=== PATIENT | female | born 1995 | race Hispanic/Latino ===

== ENCOUNTER 2018-12-16 07:58 | Emergency (ER) | payer MEDICAID, OTHER ==
[2018-12-16] MEDS ORDERED: ACETAMINOPHEN 325 MG TAB ONE (08:29)
[2018-12-16] MEDS ORDERED: LACTATED RINGERS 1000ML 1,000 ML IV ONE (08:29)
[2018-12-16] MEDS ORDERED: ONDANSETRON HCL 4 MG/2 ML VIAL ONE (08:29)
[2018-12-16] MEDS ORDERED: MORPHINE SULFATE 2 MG/ML 1ML SYG ONE (08:29)
[2018-12-16] MEDS ORDERED: FAMOTIDINE/PF 20 MG/2 ML VIAL IV ONE (08:30)
[2018-12-16 08:32] LABS: BASOPHILS % (AUTO) 0.2 % (0.0-5.0); EOSINOPHILS % (AUTO) 0.1 % (0.0-8.0); HEMATOCRIT 44.8 % (36-48); MEAN CORPUSCULAR HEMOGLOBIN 30.3 pg (27.0-33.0); MEAN CORPUSCULAR HGB CONC 33.9 g/dL (32.0-36.0); MEAN CORPUSCULAR VOLUME 89.4 fL (79-99); MONOCYTES % (AUTO) 5.2 % (3.0-13.0); NEUTROPHILS % (AUTO) 85.5 % (40.0-77.0); PLATELET COUNT (AUTO) 277 K/uL (130-400); RED BLOOD CELL COUNT(AUTO) 5.02 MIL/uL (4.00-5.50); WHITE BLOOD COUNT (AUTO) 13.3 K/uL (4.8-10.8)
[2018-12-16 08:37] LABS: APPEARANCE,URINE CLOUDY (CLEAR); BILIRUBIN,URINE NEGATIVE (NEGATIVE); COLOR,URINE YELLOW (YELLOW); GLUCOSE, URINE (UA) >=1000 mg/dL (NEGATIVE); KETONES,URINE 40 mg/dL (NEGATIVE); LEUKOCYTE ESTERASE ,URINE SMALL (NEGATIVE); NITRATE,URINE POSITIVE (NEGATIVE); OCCULT BLOOD,URINE LARGE (NEGATIVE); PROTEIN,URINE 100 (NEGATIVE); UROBILINOGEN,URINE 0.2 mg/dL (0.2-1.0)
[2018-12-16 08:39] LABS: CREATININE 0.6 mg/dL (0.5-1.5); POTASSIUM 3.9 mmol/L (3.5-5.1)
[2018-12-16 08:48] LABS: HCG,QUAL RESULT NEGATIVE (NEGATIVE)
[2018-12-16] MEDS ORDERED: INSULIN HUMULIN R 100 UNIT/ML 3ML ONE (08:49)
[2018-12-16 08:55] LABS: BACTERIA,URINE Rare /HPF (None Seen); RBC,URINE 0-1 /HPF (0-1); SQUAMOUS EPITHELIAL CELL,UR Rare /HPF (0-2); WBC,URINE 51-100 /HPF (0-1)
[2018-12-16] MEDS ORDERED: KETOROLAC TROMETHAMINE 15MG/ML ONE (09:01)
[2018-12-16] MEDS ORDERED: CEFTRIAXONE SODIUM 1 GM ONE (09:01)
== END 2018-12-16 10:10 | disposition home or self-care (01) ==
LOC: EDH 07:58
DX: N10 Acute pyelonephritis (principal); E08.65 Diabetes mellitus due to underlying condition with hyperglycemia
CPT/HCPCS: 36415; 80048; 81001; 81025; 82948; 83605; 85025; 87040 ×2; 87077; 87186; 96374; 96375; 99283; J0696; J1815; J1885; J2405; J3490; J7120